=== PATIENT | male | born 2000 | race Two or more races ===

== ENCOUNTER 2021-02-25 17:12 | Emergency (ER) | payer OTHER, SELFPAY ==
[2021-02-25 17:13] VITALS: BP 147/78; PULSE 104; RESP 16; TEMP 37.3; O2SAT 100; BMI 26.6
--- NOTE | 2021-02-25 17:36 | EX.ED.VIS.HA ---
HPI History of Present Illness Chief Complaint: Headache Informant: patient Onset/Context/Timing Onset: Yesterday Context: Gradual Timing: Continuous Quality -Headache: Positive for Other (Pressure, aching) Location: Generalized Worsened by: Noises, bright light Relieved by: Nothing Associated Symptoms/Injury Associated Symptoms: Positive for Fever, Sore Throat, Sinus Pressure and Photophobia; Negative for Nausea, Vomiting, Numbness, Tingling, Preceding Aura, Visual Changes, Blurred Vision and Visual Loss Injury - CHAVEZ: Positive for Direct Trauma Narrative Narrative: Patient presents with headache that began yesterday. Patient states he hit his head in the shower 3 days ago. Patient states that he has had some lightheadedness and dizziness after hitting his head. Patient states this headache is gradually gotten worse. Patient states it started over the left occipital area. Patient describes as aching and pressure. Patient states it is worse with noises and bright lights. Patient states she had a fever earlier this week of 100.1. Patient also admits to a sore throat and sinus pressure. Patient denies any paresthesias or weakness. Patient denies any auras or scotomas. Patient denies any visual changes. PFSH PFSH Medical History no medical history no medical history Allergy/AdvReac Type Severity Reaction Status Date / Time No Known Allergies Allergy Verified 02/25/21 17:15 Surgical History no surgical history no surgical history Social History Smoking Status: Never smoker ROS ROS ED Constitutional Constitutional ED: Reports fever(s); Denies chills Eyes Eyes: Denies blurry vision or change in vision ENT ENT ED: Reports sore throat; Denies rhinorrhea Cardiovascular Cardiovascular: Denies chest pain or palpitations Respiratory/Chest Respiratory/Chest: Reports cough; Denies dyspnea Gastrointestinal Gastrointestinal: Denies nausea or vomiting Genitourinary Genitourinary ED: Denies dysuria or hematuria Musculoskeletal Musculoskeletal: Reports back pain and neck pain Integumentary Denies abscess or rash Neurologic Neurologic: Reports headache(s); Denies weakness Allergic/Immunologic Allergic/Immunologic ED: Denies mouth swelling or urticaria EXAM Physical Exam Const Vital Signs: 02/25/21 17:13 02/25/21 19:20 Temperature 99.1 F Temperature Source Temporal Pulse Rate 104 H Respiratory Rate 16 16 Blood Pressure 147/78 H Blood Pressure Mean 101 Pulse Ox 100 Oxygen Delivery Method Room Air Positive well nourished and well developed General Appearance ED: well developed HEENT Reports moist mucous membranes Neck supple and no JVD Resp normal respiratory effort and clear to auscultation bilaterally Cardio regular rate, regular rhythm and no murmurs GI normal to inspection, nondistended, normoactive bowel sounds and non-tender Palpation: soft Extremity normal to inspection General Extremety ED: Negative for edema or tenderness General Extremity: Negative for edema Neuro oriented x3, CN's II-XII intact bilaterally and no sensory deficits noted Sensorium / Orientation: awake and alert Motor Exam: strength 5/5 throughout Psych mental status grossly normal Skin no rashes or lesions noted MDM MDM MDM Narrative Medical decision making narrative: Patient was given IV fluids, Reglan, and Benadryl. COVID-19 rapid antigen was obtained and was negative. CT scan of the brain was obtained. There is no acute intracranial abnormality. This was interpreted by the radiologist and reviewed by myself. Patient is feeling better on reevaluation. Patient was instructed rest in a dark quiet room. Patient was given head injury precautions. Patient was instructed to follow-up with his primary care physician in 5 to 7 days. Patient understood and was agreeable with the plan. All questions were answered. Radiography Diagnostic Testing: Clinical Impression(s) from Imaging Studies Brain CT 02/25/21 17:53 IMPRESSION: Normal unenhanced CT scan of the brain. Electronically Signed: Rachel Barone MD at 18:34 EDT Tel , Service support , Discharge Plan Triage Chief Complaint: Headache ED Provider: Vlad Bowman Dx/Rx/DC Orders Clinical Impression: Closed head injury Instructions: ED Head Injury (Adult) Primary Care Provider: Lesia Hooper Referrals: Lesia Hooper, DO [Primary Care Provider] - 5-7 Days Disposition Disposition: Home, Self Care
--- NOTE | 2021-02-25 17:53 | CT_ITS ---
STUDY: CT BRAIN WITHOUT CONTRAST REASON FOR EXAM: Male, 20 years old. Pain RADIATION DOSAGE (If Supplied By Facility): CTDIvol = ( 38.43 ) mGy, DLP = ( 698.28 ) mGycm TECHNIQUE: Transaxial CT imaging of the brain was performed without administration of intravenous contrast material. Individualized dose optimization techniques were used for this CT. COMPARISON: No relevant priors. FINDINGS: Normal soft tissue structures. Normal calvarium. Normal size ventricles and extra-axial spaces for the patient''s age. Normal white matter tracts of the cerebral hemispheres. Normal basal ganglia and thalami. Normal brainstem. Normal cerebellum. There is no intracranial hemorrhage. There are no findings of an acute ischemic infarction. Normal visualized paranasal sinuses. CT/Brain/Head without Contrast IMPRESSION: Normal unenhanced CT scan of the brain. Electronically Signed: Rachel Barone MD at 18:34 EDT Tel , Service support ,
[2021-02-25] MEDS: DiphenhydrAMINE 50 MG/ML Syringe 25 MG IV (18:09)
[2021-02-25] MEDS: Metoclopramide 10 MG/2 ML Vial IV (18:09)
[2021-02-25] MEDS: 0.9% Normal Saline 1,000 ML 999 ML IV (18:09)
[2021-02-25 19:20] VITALS: RESP 16
== END 2021-02-25 20:03 | disposition home or self-care (01) ==
PROVIDERS: Emergency Provider Emergency Medicine; PCP Family Medicine
DX: S09.90XA Unspecified injury of head, initial encounter (principal); W22.09XA Striking against other stationary object, initial encounter; Y93.E1 Activity, personal bathing and showering; Y92.9 Unspecified place or not applicable; Y99.8 Other external cause status
CPT/HCPCS: 70450; 87426; 96361; 96374; 96375; 99282; J7030; A4216

== ENCOUNTER 2023-01-17 12:05 | Emergency (ER) | payer OTHER, SELFPAY ==
[2023-01-17 12:06] VITALS: BP 138/60; PULSE 52; RESP 18; TEMP 36.3; O2SAT 99; BMI 24.4
[2023-01-17] MEDS: Rabies Vaccine,Human Diploid 2.5 UNITS Vial IM (13:43)
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
[2023-01-17] MEDS: Rabies Immune Globulin/PF 300 UNIT/ML, 5 ML VIAL 1420 UNIT IM (13:44)
== END 2023-01-17 14:08 | disposition home or self-care (01) ==
PROVIDERS: Emergency Provider Emergency Medicine; PCP Family Medicine; Visit Provider Emergency Medicine
DX: S61.452A Open bite of left hand, initial encounter (principal); Z23 Encounter for immunization; W55.81XA Bitten by other mammals, initial encounter
CPT/HCPCS: 90675; 96372; 99283; 90375

== ENCOUNTER 2023-01-20 15:40 | Outpatient (CLI) | payer OTHER, SELFPAY ==
[2023-01-20 15:42] VITALS: BP 132/59; PULSE 56; RESP 11; TEMP 36.6; O2SAT 100; BMI 24.3
[2023-01-20] MEDS: Rabies Vaccine,Human Diploid 2.5 UNITS Vial IM (15:52)
== END 2023-01-20 16:11 | disposition home or self-care (01) ==
LOC: ED 16:36
PROVIDERS: PCP Family Medicine
DX: Z23 Encounter for immunization (principal)
CPT/HCPCS: 90675; 96372

== ENCOUNTER 2023-01-24 17:22 | Outpatient (CLI) | payer OTHER, SELFPAY ==
[2023-01-24 18:06] VITALS: BP 135/59; RESP 55; O2SAT 99; BMI 23.5
[2023-01-24] MEDS: Rabies Vaccine,Human Diploid 2.5 UNITS Vial IM (18:09)
== END 2023-01-24 18:25 | disposition home or self-care (01) ==
PROVIDERS: PCP Family Medicine
DX: Z23 Encounter for immunization (principal)
CPT/HCPCS: 90675; 96372

== ENCOUNTER 2023-01-31 16:47 | Outpatient (CLI) | payer OTHER, SELFPAY ==
[2023-01-31 16:47] VITALS: BP 117/59; PULSE 55; RESP 16; TEMP 35.8; O2SAT 97; BMI 24.5
[2023-01-31 16:49] VITALS: BP 117/59; PULSE 59; RESP 16; TEMP 35.8; O2SAT 99; BMI 24.5
[2023-01-31] MEDS: Rabies Vaccine,Human Diploid 2.5 UNITS Vial IM (17:36)
[2023-01-31 17:37] VITALS: BMI 24.5
== END 2023-01-31 17:58 | disposition home or self-care (01) ==
LOC: ED 17:58
PROVIDERS: PCP Family Medicine
DX: Z23 Encounter for immunization (principal)
CPT/HCPCS: 90675; 96372